=== PATIENT | female | born 1990 | race Caucasian/White ===

== ENCOUNTER → 2017-05-07 | Outpatient (CLI) | payer MEDICAID | LOC: HPND 08:13 | PROVIDERS: ATTEND Obstetrics & Gynecology | DX: O35.1XX0 Maternal care for (suspected) chromosomal abnormality in fetus, not applicable or unspecified (principal) | CPT/HCPCS: 76811; 76817 ==

== ENCOUNTER → 2017-06-04 | Outpatient (CLI) | payer MEDICAID | LOC: HPND 08:34 | PROVIDERS: ATTEND Obstetrics & Gynecology | DX: O26.842 Uterine size-date discrepancy, second trimester (principal); O09.292 Supervision of pregnancy with other poor reproductive or obstetric history, second trimester; Z36.2 Encounter for other antenatal screening follow-up | CPT/HCPCS: 76816 ==

== ENCOUNTER → 2017-07-03 | Outpatient (CLI) | payer MEDICAID | LOC: HPND 08:03 | PROVIDERS: ATTEND Obstetrics & Gynecology | DX: O40.2XX0 Polyhydramnios, second trimester, not applicable or unspecified (principal) | CPT/HCPCS: 76816 ==